=== PATIENT | male | born 1940 | race Caucasian/White ===

== ENCOUNTER 2017-05-25 20:31 | Emergency (ER) | payer MEDICARE, BC ==
[~2017-05-25] VITALS: Ht 177.8 cm; Wt 113.4 kg
[~2017-05-25 20:31] MED LIST: ASPIRIN EC81 MG PO; BENAZEPRIL HCL20 MG PO; FARXIGA5 MG PO; FLOMAX0.4 MG PO; IRON SUPPLEMEN325 MG PO; JANUVIA100 MG PO; LIPITOR40 MG PO; METFORMIN HCL500 MG PO; NORCO 5-325 TA1 EACH PO; OMEPRAZOLE20 MG PO; TRIAMTERENE-HC1 EAC1 PO; VITAMIN B12-FO1 EACH PO; VITAMIN D5000 UNIT PO; ZOFRAN4 MG PO
--- OUTSIDE RECORDS SUMMARY | 2017-05-25 20:44 | XMS | Clinical Summary ---
Demographics + + + | Address | [address] | | | [place] [address] | + + + | Home Phone | | + + + | Preferred Language | Unknown | + + + | Marital Status | | + + + | Islam Affiliation | Unknown | + + + | Race | Unknown | + + + | Ethnic Group | Other Race | + + + Author + + + | Author | [facility] | + + + | Organization | [facility] | + + + | Address | Unknown | + + + | Phone | Unavailable | + + + Care Team Providers + +------+ + | Care Boarding Mother Name | Role | Phone | + +------+ + PP | Unavailable | + +------+ + Source Comments VIVIANA is fully live on both [facility] Ambulatory and [facility] InPatient.[facility] Allergies Not on File Current Medications Not on file Active Problems Not on file Social History + +-------+ +--------+------+ | Tobacco Use | Types | Packs/Day | Years | Date | | | | | Used | | + +-------+ +--------+------+ | Never Assessed | | | | | + +-------+ +--------+------+ + + + | Sex Assigned at | Date Recorded | | | | + + + | Not on file | | + + + Plan of Treatment + + + + + | Health Maintenance | Due Date | Last Done | Comments | + + + + + | INFLUENZA VACCINE | | | | | (FLU SHOT) | 7 | | | + + + + + Results Not on filefrom Last 3 Months"
--- OUTSIDE RECORDS SUMMARY | 2017-05-25 20:44 | XMS | Clinical Summary ---
Demographics + + + | Address | [address] | | | [place] [address] | + + + | Home Phone | | + + + | Preferred Language | Unknown | + + + | Marital Status | | + + + | Gnosticist Affiliation | Unknown | + + + | Race | Unknown | + + + | Ethnic Group | Other Race | + + + Author + + + | Author | [facility] | + + + | Organization | [facility] | + + + | Address | Unknown | + + + | Phone | Unavailable | + + + Care Team Providers + +------+ + | Care Telephone Worker Name | Role | Phone | + +------+ + PP | Unavailable | + +------+ + Source Comments VIVIANA is fully live on both [facility] and [facility] Allergies Not on File Current Medications Not [...]
[2017-05-25] MEDS ORDERED: AMLODIPINE BESYL5 MG PO (20:45)
--- NOTE | 2017-05-26 13:38 | EKG ---
[facility] [address] [facility] [place] [address] Signed Normal sinus rhythm Minimal voltage criteria for LVH, may be normal variant Borderline ECG No previous ECGs available Confirmed by CY APONTE MD ([id number]) on 05/26/2017 1:38:04 PM Electronically Signed By: CY APONTE MD 05/26/17 1338 PATIENT NAME: NASREEN MERCADO REGGIE Electrocardiogram DATE OF : 40 PHYSICIAN: CY APONTE MD REPORT #: [id number] REPORT IS CONFIDENTIAL AND NOT TO BE RELEASED WITHOUT AUTHORIZATION
[2017-08-28] MEDS ORDERED: RAPAFLO8 MG PO (17:20)
[2017-08-28] MEDS ORDERED: NEURONTIN300 MG PO (17:21)
[2017-08-28] MEDS ORDERED: ALPHA LIPOIC A200 MG PO (17:22)
[2017-08-28] MEDS ORDERED: FINASTERIDE5 MG PO (17:22)
[2017-08-28] MEDS ORDERED: GLIPIZIDE10 MG PO (17:23)
[2017-08-28] MEDS ORDERED: BENAZEPRIL HCL40 MG PO (17:23)
== END 2017-05-26 00:15 | disposition home or self-care (01) ==
LOC: ED 20:31
DX: I10 Essential (primary) hypertension (principal); R06.00 Dyspnea, unspecified; E11.40 Type 2 diabetes mellitus with diabetic neuropathy, unspecified; E78.00 Pure hypercholesterolemia, unspecified; Z87.891 Personal history of nicotine dependence; Z79.84 Long term (current) use of oral hypoglycemic drugs; Z79.899 Other long term (current) drug therapy
CPT/HCPCS: 70450; 71046; 80053; 83880; 84484; 85025; 93005; 93010; 99284

== ENCOUNTER 2017-09-03 05:45 | Day surgery (SDC) | payer MEDICARE, BC ==
[~2017-09-03] VITALS: Ht 177.8 cm; Wt 111.1 kg
[~2017-09-03 05:45] MED LIST changes: +ALPHA LIPOIC A200 MG PO; +AMLODIPINE BESYL5 MG PO; +BENAZEPRIL HCL40 MG PO; +FINASTERIDE5 MG PO; +GLIPIZIDE10 MG PO; +NEURONTIN300 MG PO; +RAPAFLO8 MG PO
[2017-09-03] MEDS ORDERED: NORCO 5-325 TA1 EACH PO (10:05)
--- NOTE | 2017-09-03 14:21 | OR ---
[facility] [address] [place], [place] [address] Signed DATE OF OPERATION: 09/03/2017 SURGEON: Any Posada MD PREOPERATIVE DIAGNOSIS: Reducible umbilical hernia (1 cm). POSTOPERATIVE DIAGNOSIS: Reducible umbilical hernia (1 cm). PROCEDURE: Primary umbilical herniorrhaphy with intraabdominal Ventralex mesh. ESTIMATED BLOOD LOSS: None. INDICATIONS: Ralph is a 76-year-old obese, diabetic gentleman, who has had an umbilical hernia for a few years. He said generally it is okay, but he and his continue to work at a local [employer], which requires lifting. He notices it when he has to bend over when he is lifting. He finally decided it was bothering him enough that he brought up to his primary care provider. He was then asked to see me with respect to the above. I met with Ralph in the office and I gave him a booklet on hernias and we looked at that together in detail. He understands the nature of an umbilical hernia along with the difference between a primary suture repair and a mesh repair. He also understands the expected intraop and postop course. We did review the risks including, but not limited to bleeding, infection, scarring, change in contour of the skin, damage to bowel infection of mesh requiring removal, recurrent hernias, and chronic pain. He had expressed understanding and wished to proceed. PROCEDURE NOTE: I met with Ralph and his in our preop area. We all agreed on his umbilical hernia, we marked that appropriately. After this, he was taken in the operating room and placed in the supine position under general endotracheal tube anesthesia. He was given preoperative antibiotics along with subcutaneous heparin. SCDs were utilized. He was then prepped and draped in the usual sterile fashion. We utilized our standard transverse infraumbilical incision and carried that down around the umbilicus bluntly and with the cautery. We the hernia sac from the fascial defect with the help of the cautery and reduced the fat into the abdomen. The fascial defect was about a centimeter in diameter. We therefore, chose our 4.3 cm round Ventralex mesh, we placed Electronically Signed By: ANY POSADA MD 09/03/17 1421 PATIENT NAME: RALPH MERCADO OPERATIVE REPORT DATE OF : 40 REPORT #: [id number] PHYSICIAN: ANY POSADA MD PCP: CY APONTE MD REPORT IS CONFIDENTIAL AND NOT TO BE RELEASED WITHOUT AUTHORIZATION [facility] [address] [place], [place] [address] Signed that in the abdomen and brought it up flush against the posterior abdominal wall. We then closed the fascial defect transversely with a running #1 Prolene suture with several passes of the suture going through the tab on the mesh to help hold it in place. The tab was then cut flush with the fascia and discarded. Local anesthetic was injected into the entire operative wound. The wound was irrigated and suctioned out until clear. The umbilical skin was then held down to the midline fascia with an interrupted 2-0 PDS suture. The skin and dermis were then reapproximated with interrupted 3-0 subcuticular Monocryl sutures. Dry gauze and tape were then applied. He also was then awakened from his anesthesia, extubated in the OR, and taken to recovery room in stable condition. Any Posada MD ALB/MODL /[id number] cc: MD Calixto Caballero, MD Robert Schneider, MD Any Posada MD Copies: CY APONTE MD, GARY MD DUNST,ROBERT POSADA,ANY Rothman MD ~ Electronically Signed By: ANY POSADA MD 09/03/17 1421 PATIENT NAME: RALPH MERCADO OPERATIVE REPORT DATE OF : 40 REPORT #: [id number] PHYSICIAN: ANY POSADA MD PCP: CY APONTE MD REPORT IS CONFIDENTIAL AND NOT TO BE RELEASED WITHOUT AUTHORIZATION
== END 2017-09-03 12:35 | disposition home or self-care (01) ==
LOC: DS 05:45
PROVIDERS: Colon & Rectal Surgery
PROC: 0WUF0JZ Supplement Abdominal Wall with Synthetic Substitute, Open Approach (ICD-10-PCS; principal; 2017-09-03 06:45)
DX: K42.9 Umbilical hernia without obstruction or gangrene (principal); E66.9 Obesity, unspecified; E11.9 Type 2 diabetes mellitus without complications; I10 Essential (primary) hypertension; K21.9 Gastro-esophageal reflux disease without esophagitis; E78.00 Pure hypercholesterolemia, unspecified; E55.9 Vitamin D deficiency, unspecified; M19.90 Unspecified osteoarthritis, unspecified site; D64.9 Anemia, unspecified; Z87.891 Personal history of nicotine dependence; Z68.35 Body mass index [BMI] 35.0-35.9, adult; Z79.84 Long term (current) use of oral hypoglycemic drugs; Z79.899 Other long term (current) drug therapy
CPT/HCPCS: 00750; C1781; J0131; J0330; J0690; J0735; J1100; J1644; J1885; J2250; J2405; J2704; J3475; J7120

== ENCOUNTER 2018-08-06 06:59 | Day surgery (SDC) | payer MEDICARE, BC ==
[~2018-08-06] VITALS: Ht 177.8 cm; Wt 113.4 kg
[2018-08-06] MEDS ORDERED: IRON325 M1 PO (07:15)
[2018-08-06] MEDS ORDERED: LABETALOL HCL100 MG PO (07:16)
[2018-08-06] MEDS ORDERED: ALDACTONE25 MG PO (07:16)
[2018-08-06] MEDS ORDERED: HYDROCHLOROTH12.5 M1 PO (07:17)
--- NOTE | 2018-08-06 09:28 | NUR ---
08/06/18 0928 Ana Mckeon 0947 PATIENT ARRIVES TO PACU SLEEPING, AWAKENS WITH VERBAL STIMULI, THEN BACK TO SLEEP. PATIENT PASSING GAS. RESP EVEN AND UNLABORED, ROOM AIR SAS >95%.
--- NOTE | 2018-08-07 06:17 | OR ---
[facility] [address] [place], [place] [address] Signed DATE OF OPERATION: 08/06/2018 SURGEON: Any Posada MD PREOPERATIVE DIAGNOSES: 1. History of hiatal hernia, status post fundoplication in 2013. 2. History of Diaz esophagus. 3. Anemia. 4. Personal history of colonic polyps in 1997 and 2011. 5. History of diverticulosis. 6. History of hemorrhoids and diarrhea. 7. Brother with a history of colonic polyps. 8. Father with a history of colon cancer in his 80s. POSTOPERATIVE DIAGNOSES: 1. Diaz esophagus. 2. Ursf-kr-xofmarug gastroduodenitis. 3. An 8 mm sessile polyp at 50 cm. 4. Minimal internal hemorrhoids. PROCEDURES PERFORMED: 1. EGD with CLOtest and biopsies of the duodenum, pyloric bulb, antrum, GE junction, and distal esophagus. 2. Colonoscopy with hot biopsy. ESTIMATED BLOOD LOSS: None. INDICATION: Ralph is a 77-year-old diabetic gentleman who was asked to see me for both upper and lower endoscopy. He has a long list of issues as stated above. Overall, he says he has been feeling good. He said he has not had acid reflux since his fundoplication. He has never had any dysplasia in the Diaz esophagus. He comes every 3 to 5 years for repeat upper endoscopy for the Diaz esophagus and needs a colonoscopy every 5 years given his personal family history. He stays very active. 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 Consequently, stays in good shape, has good muscle mass, good functional status. He is a little anemic on his recent blood work. I gave Ralph and pamphlets on both upper and lower endoscopy. We had reviewed the nature of the 2 tests along with the risks including, but not limited to gas bloating, crampy abdominal pain, bleeding, perforation, requiring surgery, and missed diagnosis. We also Electronically Signed By: ANY POSADA MD 08/07/18 0617 PATIENT NAME: RALPH MERCADO OPERATIVE REPORT DATE OF : 40 REPORT #: [id number] PHYSICIAN: ANY POSADA MD PCP: CY APONTE MD REPORT IS CONFIDENTIAL AND NOT TO BE RELEASED WITHOUT AUTHORIZATION [facility] [address] [place], [place] [address] Signed discussed the need for IV conscious sedation. He had expressed understanding wished to proceed. DESCRIPTION OF PROCEDURE: Ralph was taken into our endoscopy suite and placed in the supine semi-recumbent position. His posterior oropharynx was anesthetized with lidocaine spray. A bite-block was utilized for the case. He was given 8 mg of Versed and 150 mcg of fentanyl to cover both cases. The adult gastroscope was introduced and advanced under direct visualization of camera without difficulty. He did have some punctate gastroduodenitis. We took biopsies out in the duodenum and pyloric bulb. He possibly had some shallow ulcerations. We also took biopsies of the antrum for pathologic review as well as CLOtest. He had similar findings in the antrum. However, the incisura, body, and fundus of the stomach were unremarkable. Upon retroflexion of scope, we can see these had a prior fundoplication. It appears to remain intact. The scope was withdrawn through the GE junction, which was compliant without stricture. He has no gastric or esophageal varices. There is no stricture at the GE junction. Indeed, he has mild Diaz esophagus. He seems to have some that extends slightly up into the distal esophagus as well. Consequently, we took biopsies at the Z-line, but also just above the Z-line in the distal esophagus. The middle and upper esophagus were visually unremarkable. After this, the gas was suctioned out and the gastroscope removed. Ralph tolerated the upper endoscopy quite well. Ralph was then rotated into the left lateral decubitus position. He was maintained on IV sedation with the Versed and fentanyl. A digital rectal exam was performed and he had good sphincter tone. Not much in the way of his prostate. It seems quite small and I really could not feel much there. After this, the adult colonoscope was introduced and advanced all around into the cecum under direct visualization of camera without difficulty. His prep was quite good. We would easily see the appendiceal orifice, the benton's foot, and ileocecal valve. Pictures were taken throughout for photodocumentation. We encountered 8 mm sessile polyp at 50 cm. It was easily removed with several bites of hot biopsy forceps. We did not see any diverticulosis on this occasion. Rectum was unremarkable. Upon retroflexion of scope, he does have some standard mild internal hemorrhoid columns. After this, the gas was suctioned out. The colonoscope removed. Ralph tolerated the upper and lower endoscopy quite well. RECOMMENDATIONS: I will see Ralph back in my office in 7 to 14 days to review his results. Any Posada MD Electronically Signed By: ANY POSADA MD 08/07/18 0617 PATIENT NAME: RALPH MERCADO OPERATIVE REPORT DATE OF : 40 REPORT #: [id number] PHYSICIAN: ANY POSADA MD PCP: CY APONTE MD REPORT IS CONFIDENTIAL AND NOT TO BE RELEASED WITHOUT AUTHORIZATION [address] [place] [address] Signed ALB/MODL /[id number] cc: MD Any Johnson MD Gary Crabtree, MD Lohith Veerappa Reddy, MD Copies: ROBERT FUENTES MD, ANDREW L MD CRABTREE, GARY MD REDDY, LOHITH VEERAPPA MD ~ Electronically Signed By: ANY POSADA MD 08/07/18 0617 PATIENT NAME: RALPH MERCADO OPERATIVE REPORT DATE OF : 40 REPORT #: [id number] PHYSICIAN: ANY POSADA MD PCP: CY APONTE MD REPORT IS CONFIDENTIAL AND NOT TO BE RELEASED WITHOUT AUTHORIZATION
== END 2018-08-06 10:25 | disposition home or self-care (01) ==
LOC: DS 06:59 → OPS 06:59 → DS 08:15 → OPS 10:25
PROVIDERS: Colon & Rectal Surgery
PROC: 0DB78ZX Excision of Stomach, Pylorus, Via Natural or Artificial Opening Endoscopic, Diagnostic (ICD-10-PCS; 2018-08-06)
PROC: 0DB38ZX Excision of Lower Esophagus, Via Natural or Artificial Opening Endoscopic, Diagnostic (ICD-10-PCS; 2018-08-06)
PROC: 0DB48ZX Excision of Esophagogastric Junction, Via Natural or Artificial Opening Endoscopic, Diagnostic (ICD-10-PCS; 2018-08-06)
PROC: 0DBE8ZX Excision of Large Intestine, Via Natural or Artificial Opening Endoscopic, Diagnostic (ICD-10-PCS; principal; 2018-08-06 08:15)
PROC: 0DB98ZX Excision of Duodenum, Via Natural or Artificial Opening Endoscopic, Diagnostic (ICD-10-PCS; 2018-08-06 08:15)
DX: Z12.11 Encounter for screening for malignant neoplasm of colon (principal); D12.6 Benign neoplasm of colon, unspecified; K64.8 Other hemorrhoids; K22.70 Barrett's esophagus without dysplasia; K29.50 Unspecified chronic gastritis without bleeding; I10 Essential (primary) hypertension; E66.9 Obesity, unspecified; E11.9 Type 2 diabetes mellitus without complications; M19.90 Unspecified osteoarthritis, unspecified site; E55.9 Vitamin D deficiency, unspecified; K21.9 Gastro-esophageal reflux disease without esophagitis; Z83.71 Family history of colonic polyps; Z80.0 Family history of malignant neoplasm of digestive organs; Z86.010 Personal history of colon polyps; Z87.891 Personal history of nicotine dependence; Z98.890 Other specified postprocedural states; Z79.84 Long term (current) use of oral hypoglycemic drugs; Z79.899 Other long term (current) drug therapy; Z68.35 Body mass index [BMI] 35.0-35.9, adult
CPT/HCPCS: 86677; 99153; G0500; J2250; J3010; J7120

== ENCOUNTER 2021-07-10 13:03 | Emergency (ER) | payer MEDICARE, BC ==
[~2021-07-10] VITALS: Ht 177.8 cm; Wt 116.4 kg
[~2021-07-10 13:03] MED LIST changes: +ALDACTONE25 MG PO; +HYDROCHLOROTH12.5 M1 PO; +IRON325 M1 PO; +LABETALOL HCL100 MG PO
[2021-07-10] MEDS ORDERED: DOXAZOSIN MESYLA1 MG PO (14:35)
[2021-07-10] MEDS ORDERED: OMEPRAZOLE40 MG PO (14:36)
== END 2021-07-10 21:25 | disposition home or self-care (01) ==
LOC: ED 13:03
DX: R42 Dizziness and giddiness (principal); E78.00 Pure hypercholesterolemia, unspecified; E11.40 Type 2 diabetes mellitus with diabetic neuropathy, unspecified; Z87.891 Personal history of nicotine dependence; Z88.8 Allergy status to other drugs, medicaments and biological substances; Z79.899 Other long term (current) drug therapy; Z79.84 Long term (current) use of oral hypoglycemic drugs
CPT/HCPCS: 36415; 70450; 70551; 80053; 85025; 96374; 99284-25; J2060

== ENCOUNTER 2021-07-26 06:25 | Day surgery (SDC) | payer MEDICARE, BC ==
[~2021-07-26] VITALS: Ht 177.8 cm; Wt 116.3 kg
[~2021-07-26 06:25] MED LIST changes: +ACETYL L-CARNI1 EACH PO; +CARDURA1 MG PO; +DOXAZOSIN MESYLA1 MG PO; +OMEPRAZOLE40 MG PO
--- NOTE | 2021-07-26 07:15 | NUR ---
BLOOD GLUCOSE 110.
--- NOTE | 2021-07-26 07:50 | NUR ---
07/26/21 2226 Heather Wagner 7007-PATIENT ARRIVED TO PACU ON 3L NC PLACED ON 2. RR EVEN. PATIENTS HOB ELEVATED REACTIVE TO VERBAL STIMULI VERY DROWSY DENIES PAIN OR NAUSEA. IVF INFUSING. ABDOMEN SOFT. PATIENT DOZES BACK TO SLEEP.
--- NOTE | 2021-07-26 08:37 | NUR ---
PT ALERT, ORIENTED AND SUPPORTED BY HIS . PT SEEMS INFORMED, HIS WILL REMAIN FOR DC. MANAGER MONITORING REYNA IN TO TAKE PT, GAVE BLESSING AND WILL FOLLOW
--- NOTE | 2021-07-26 16:53 | OR ---
[facility] [address] [place], [place] [address] Signed DATE OF OPERATION: 07/26/2021 SURGEON: Any Posada MD PREOPERATIVE DIAGNOSES: 1. 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 2. History of hiatal hernia, status post laparoscopic Brunilda fundoplication 2013. 3. Acid reflux. POSTOPERATIVE DIAGNOSES: 1. Mild diffuse gastritis. 2. Intact Brunilda fundoplication. 3. Short-segment Diaz's esophagus. PROCEDURE: EGD with CLOtest and biopsies of the antrum and the distal esophagus. ESTIMATED BLOOD LOSS: None. INDICATIONS: Ralph is an 80-year-old gentleman who returns for a followup endoscopy given his short-segment Diaz's esophagus. He had his upper endoscopy in 2013 for the hiatal hernia and was found to have his short-segment Diaz's esophagus without dysplasia. CLOtest was negative. He always does well with Versed and fentanyl. He underwent a laparoscopic Brunilda fundoplication later that year. I repeated his upper endoscopy in 2014 and again he has a Diaz's esophagus without dysplasia. He came back in 2019 for his upper endoscopy and again short-segment Diaz's esophagus without dysplasia. He always has some mild inflammation in the stomach. His CLOtest is always negative. He always does well with Versed and fentanyl. He told me at age 80 this might be his last endoscopy. He and his finally retired last year. He said he had developed recurrent acid reflux symptoms, so he went back on omeprazole. He said he feels much better. He has no esophageal dysphagia. In the office, I gave him a pamphlet on upper endoscopy. He recalls the test quite readily. There is risk including, but not limited to gas bloating, crampy abdominal pain, bleeding, perforation requiring surgery, and missed diagnosis. We also reviewed the need for IV conscious sedation. As always, his will take him home. He had expressed understanding and wished to proceed. PROCEDURE NOTE: Ralph was taken into our endoscopy suite and placed in the supine semi-recumbent Electronically Signed By: ANY POSADA MD 07/26/21 1653 PATIENT NAME: RALPH MERCADO OPERATIVE REPORT DATE OF : 40 REPORT #: [id number] PHYSICIAN: AYN POSADA MD PCP: CY APONTE MD REPORT IS CONFIDENTIAL AND NOT TO BE RELEASED WITHOUT AUTHORIZATION [facility] [address] [place], [place] [address] Signed position. The posterior oropharynx was anesthetized with lidocaine spray. A bite block was utilized for the case. He was given 5 mg of Versed and 100 mcg of fentanyl to cover the case. The adult gastroscope was introduced and advanced quite readily all the way out into the third portion of the duodenum without difficulty. The duodenum and pyloric channel were unremarkable. As always, he had some mild inflammatory changes throughout his stomach. We went ahead and took a biopsy of the antrum for pathologic review as well as CLOtest. Upon retroflexion of the scope, we can see the intact Brunilda fundoplication. The scope was then withdrawn up through the area of the GE junction, which was compliant without stricture. Again, he has short-segment Diaz's esophagus. We took several biopsies around this area for pathologic review. No evidence of any inflammatory changes in his distal, middle and upper esophagus. After this, the gas was suctioned out and the gastroscope removed. Ralph tolerated the procedure quite well. RECOMMENDATIONS: I will see Ralph back in my office in 7 to 14 days to review his results. Any Posada MD ALB/MODL /[id number] cc: MD Any Caballero MD Christy Dunst, MD Copies: CY APONTE MD, ANDREW L MD DUNST, CHRISTY MD ~ Electronically Signed By: ANY POSADA MD 07/26/21 1653 PATIENT NAME: RALPH MERCADO OPERATIVE REPORT DATE OF : 40 REPORT #: [id number] PHYSICIAN: ANY POSADA MD PCP: CY APONTE MD REPORT IS CONFIDENTIAL AND NOT TO BE RELEASED WITHOUT AUTHORIZATION
--- NOTE | 2021-07-31 14:36 | PATH ---
[facility] [address] [facility] [place] [address] Signed THIS IS AN ADDENDUM REPORT SPECIMEN(S): A ANTRUM/PYLORUS BIOPSY SPECIMEN(S): B GE JUNCTION BIOPSY SPECIMEN(S): C MID ESOPHAGEAL BIOPSY SPECIMEN SOURCE: A. ANTRUM/PYLORUS BIOPSY B. GE JUNCTION BIOPSY C. MID ESOPHAGEAL BIOPSY CLINICAL HISTORY: History of Diaz's. EGD. FINAL PATHOLOGIC DIAGNOSIS: A. Stomach, antrum/pylorus, biopsy: - Antral mucosa with chronic, active gastritis and reactive gastropathy. - Negative for Helicobacter organisms on HE stain. - Negative for dysplasia or malignancy. B. Gastroesophageal junction, biopsy: - Squamocolumnar junctional mucosa with intestinal metaplasia arising in a background of reactive changes. - Negative for dysplasia or malignancy. C. Esophagus, mid, biopsy: - Squamocolumnar junctional mucosa with intestinal metaplasia and reactive changes, consistent with Diaz's esophagus. - Negative for dysplasia or malignancy. COMMENT: Regarding specimen A: An H. pylori immunohistochemical stain has been ordered and will be reported in an addendum. NAL:cml:C2NR MICROSCOPIC EXAMINATION: Histologic sections of all submitted blocks are examined by light microscopy. These findings, together with the gross examination, support the pathologic diagnosis. GROSS DESCRIPTION: Three specimens are received in three containers labeled with "Ralph". A. The specimen, labeled "Ralph, BX antrum," is received in formalin and PATIENT NAME: RALPH MERCADO PATHOLOGY DATE OF : 40 REPORT #: [id number] PHYSICIAN: DIVYA ALVAREZ PCP: CY APONTE MD REPORT IS CONFIDENTIAL AND NOT TO BE RELEASED WITHOUT AUTHORIZATION [facility] [address] [place], [place] [address] Signed consists of one fragment of pink-ibarra tissue (0.4 cm in greatest dimension). The specimen is submitted entirely in cassette (A1). B. The specimen, labeled "Ralph, ZULEMA GE junction," is received in formalin and consists of two fragments of pink-ibarra tissue (0.2 cm in greatest dimension). The specimen is submitted entirely in cassette (B1). C. The specimen, labeled "Ralph, ZULEMA mid esophagus," is received in formalin and consists of two fragments of pink-ibarra tissue (0.3 cm in greatest dimension). The specimen is submitted entirely in cassette (C1). KD (under the direct supervision of a pathologist) The Gross Description was prepared using a voice recognition system. The report was reviewed for accuracy; however, sound-alike word errors, addition and/or deletions may occur. If there is any question about this report, please contact Client Services. PERFORMING LABORATORY: The technical component was performed by [facility], [address] [place] [address] (Medical Biller/Coder: Mel Reyes MD; CLIA# [id number]). [facility], [address] [place] [id number] (CLIA# [id number]). ADDITIONAL NOTES: Immunohistochemical and/or in situ hybridization studies were performed on this case with the appropriate positive controls that react as expected. This test was developed and its performance characteristics determined by [facility]. It has not been cleared or approved by the U.S. Food and Drug Administration. The FDA has determined that such clearance or approval is not necessary. This test is used for clinical purposes. It should not be regarded as investigational or for research. [facility] is certified under the Clinical Laboratory Improvement Amendments of 1988 (CLIA) as qualified to perform high complexity clinical laboratory testing. This assay has not been validated for specimens that have been decalcified. The technical component was performed by [facility], [address] [place] [address] (CLIA# [id number]). Professional interpretation was performed by [facility] PATIENT NAME: RALPH MERCADO PATHOLOGY DATE OF : 40 REPORT #: [id number] PHYSICIAN: DIVYA ALVAREZ PCP: CY PAONTE MD REPORT IS CONFIDENTIAL AND NOT TO BE RELEASED WITHOUT AUTHORIZATION [facility] [address] [place], [place] [address] Signed branch, [address] [address] (CLIA# [id number]). REASON FOR ADDENDUM: To add results of additional testing. ADDENDUM PATHOLOGIC DIAGNOSIS: Regarding specimen A: - An H. pylori immunohistochemical stain (with appropriately staining controls) is negative for Helicobacter organisms. NAL:cml Diagnostician: Bina Cotton MD Pathologist Electronically Signed 07/31/2021 Copies: ~ PATIENT NAME: ESTERMooRALPH PATHOLOGY DATE OF : 40 REPORT #: [id number] PHYSICIAN: DIVYA ALVAREZ PCP: CY APONTE MD REPORT IS CONFIDENTIAL AND NOT TO BE RELEASED WITHOUT AUTHORIZATION
== END 2021-07-26 08:40 | disposition home or self-care (01) ==
LOC: DS 06:25 → OPS 06:25 → DS 07:30 → OPS 08:40
PROVIDERS: ATTEND Colon & Rectal Surgery
PROC: 0DB78ZX Excision of Stomach, Pylorus, Via Natural or Artificial Opening Endoscopic, Diagnostic (ICD-10-PCS; 2021-07-26)
PROC: 0DB38ZX Excision of Lower Esophagus, Via Natural or Artificial Opening Endoscopic, Diagnostic (ICD-10-PCS; principal; 2021-07-26 07:30)
DX: K29.50 Unspecified chronic gastritis without bleeding (principal); K31.9 Disease of stomach and duodenum, unspecified; K22.70 Barrett's esophagus without dysplasia; K44.9 Diaphragmatic hernia without obstruction or gangrene; K21.9 Gastro-esophageal reflux disease without esophagitis; E11.9 Type 2 diabetes mellitus without complications; I10 Essential (primary) hypertension; Z87.891 Personal history of nicotine dependence; Z20.822 Contact with and (suspected) exposure to COVID-19
CPT/HCPCS: 87077; 88305; 88342; G0500; J2250; J3010; J7121

== ENCOUNTER 2023-09-08 14:51 | Emergency (ER) | payer MEDICARE, OTHER ==
[~2023-09-08] VITALS: Ht 177.8 cm; Wt 121.2 kg
--- OUTSIDE RECORDS SUMMARY | 2023-09-08 14:53 | XMS ---
PreManage Notification: NASREEN MERCADO Security Fur Finisher Events No recent Security Events currently on file [facility] There are no care providers on record at this time. Abhijeet has no Care Guidelines for this patient. Dariel VISIT COUNT (12 MO.) 2 [facility] TOTAL 2 NOTE: Visits indicate total known visits. ED/UCC VISIT TRACKING (12 MO.) 09/08/2023 14:52 [facility] [place] TYPE: Emergency COMPLAINT: - FOOT SWELLING 03/22/2023 12:[address] [facility] [place] TYPE: Emergency COMPLAINT: - HIP PAIN DIAGNOSES: - Allergy status to analgesic agent - Allergy status to other drugs, medicaments and biological substances - Essential (primary) hypertension - care home (current) use of oral hypoglycemic drugs - Low back pain, unspecified - Lumbago with sciatica, right side - Other vermin exterminator (current) drug therapy - Type 2 diabetes mellitus with diabetic neuropathy, unspecified INPATIENT VISIT TRACKING (12 MO.) No inpatient visits to display in this time frame [email or web address]
[2023-09-08] MEDS ORDERED: GABAPENTIN300 MG PO (19:43)
[2023-09-08] MEDS ORDERED: DAPAGLIFLOZIN5 MG (19:50)
[2023-09-08 21:23] LABS: BILIRUBIN, URINE NEGATIVE (negative); BLOOD/HGB, URINE NEGATIVE (Negative); KETONE, URINE NEGATIVE (Negative); LEUK ESTERASE, URINE NEGATIVE (negative); NITRITE, URINE NEGATIVE (negative); PH, URINE 5.5 (5-7)
[2023-09-08 21:49] LABS: EOSINOPHILS 4.6 % (0-6); HEMATOCRIT 34.9 % (35.0-50.0); HEMOGLOBIN 11.7 g/dL (12.0-18.0); LYMPHOCYTES 20.9 % (24-44); MCH 29.4 (27-36); MCHC 33.7 g/dl (30-36); MCV 87.4 fl (81-99); MONOCYTES 8.1 % (0-12); NEUTROPHILS 65.4 % (39-80); PLATELET COUNT 206 K/uL (140-440); RBC 3.99 M/ul (4.3-5.7); RDW 12.7 (10.5-15.0)
[2023-09-08 22:12] LABS: ALBUMIN 3.6 g/dL (3.4-5.0); ALBUMIN/GLOBULIN RATIO 1.13 (1.1-2.4); ANION GAP 13.3 (7-21); BILIRUBIN, TOTAL 0.4 ng/dL (0.2-1.0); BUN/CREATININE RATIO 13.97 (6.0-28.6); CALCIUM 9.3 mg/dL (8.5-10.1); CREATININE, SERUM 1.86 mg/dL (0.70-1.30); MAGNESIUM 1.7 mg/dL (1.8-2.4); POTASSIUM 4.3 mmol/L (3.5-5.1); PROTEIN, TOTAL 6.8 g/dL (6.4-8.2); TSH, 3RD GENERATION 4.814 uIU/mL (0.358-3.740)
[2023-09-08] MEDS ORDERED: POTASSIUM CHLORIDE 10 MEQ TABCR PO ONE (22:45)
[2023-09-08] MEDS ORDERED: FUROSEMIDE 40 MG TAB PO ONE (22:45)
[2023-09-08] MEDS ORDERED: POTASSIUM CHLO20 ME2 PO (22:51)
[2023-09-08] MEDS ORDERED: LASIX40 MG PO (22:51)
[2023-09-08 23:22] VITALS: BP 146/72
--- NOTE | 2023-09-09 08:21 | EKG ---
[facility] [address] [place] [address] Signed Sinus bradycardia with sinus arrhythmia Left axis deviation Pulmonary disease pattern Nonspecific intraventricular conduction delay Minimal voltage criteria for LVH, may be normal variant ( Karthikeyan product ) Abnormal ECG When compared with ECG of 28-AUG-2017 16:19, Vent. rate has decreased BY 35 BPM QRS duration has increased Confirmed by Ravi Reese MD () on 09/09/2023 8:22:02 AM Electronically Signed By: RAVI REESE MD 09/09/23 0821 PATIENT NAME: NASREEN MERCADO Electrocardiogram DATE OF : 40 PHYSICIAN: RAVI REESE MD REPORT #: [id number] REPORT IS CONFIDENTIAL AND NOT TO BE RELEASED WITHOUT AUTHORIZATION
== END 2023-09-08 23:20 | disposition home or self-care (01) ==
LOC: ED 14:51
PROVIDERS: Internal Medicine
DX: R60.0 Localized edema (principal); I10 Essential (primary) hypertension; E11.40 Type 2 diabetes mellitus with diabetic neuropathy, unspecified; E78.00 Pure hypercholesterolemia, unspecified; Z87.891 Personal history of nicotine dependence; Z88.6 Allergy status to analgesic agent; Z88.8 Allergy status to other drugs, medicaments and biological substances; Z79.899 Other long term (current) drug therapy; Z79.84 Long term (current) use of oral hypoglycemic drugs
CPT/HCPCS: 36415; 71045; 80053; 81003; 83735; 83880; 84439; 84443; 85025; A9270

== ENCOUNTER 2024-08-17 11:31 | Emergency (ER) | payer MEDICARE, OTHER ==
[~2024-08-17] VITALS: Ht 177.8 cm; Wt 114.5 kg
[~2024-08-17 11:31] MED LIST changes: +DAPAGLIFLOZIN5 MG; +GABAPENTIN300 MG PO; +LASIX40 MG PO; +POTASSIUM CHLO20 ME2 PO
[2024-08-17 11:57] LABS: BILIRUBIN, URINE NEGATIVE (negative); BLOOD/HGB, URINE TRACE-L (Negative); KETONE, URINE NEGATIVE (Negative); LEUK ESTERASE, URINE NEGATIVE (negative); NITRITE, URINE NEGATIVE (negative); PH, URINE 5.5 (5-7)
[2024-08-17] MEDS ORDERED: SODIUM CHLORIDE 0.9% 500 ML IV PRN (12:00)
[2024-08-17 12:01] LABS: BASOPHILS 0.6 % (0-2); EOSINOPHILS 1.7 % (0-6); HEMATOCRIT 35.4 % (35.0-50.0); HEMOGLOBIN 11.9 g/dL (12.0-18.0); LYMPHOCYTES 14.9 % (24-44); MCH 28.6 (27-36); MCHC 33.5 g/dl (30-36); MCV 85.5 fl (81-99); MONOCYTES 6.1 % (0-12); NEUTROPHILS 76.7 % (39-80); PLATELET COUNT 224 K/uL (140-440); RBC 4.14 M/ul (4.3-5.7); RDW 13.6 (10.5-15.0)
[2024-08-17 12:04] LABS: EPITHELIAL CELLS, URINE SQUAMOUS 1+ /lpf (0-1+); REFLEX CULTURE, URINE No (No); WHITE BLOOD CELLS, URINE 0-1 /HPF (0-5)
[2024-08-17 12:19] LABS: ALBUMIN 3.6 g/dL (3.4-5.0); ALBUMIN/GLOBULIN RATIO 1.16 (1.1-2.4); ANION GAP 15.1 (7-21); BILIRUBIN, TOTAL 0.4 mg/dL (0.2-1.0); BUN/CREATININE RATIO 9.37 (6.0-28.6); CALCIUM 9.4 mg/dL (8.5-10.1); CREATININE, SERUM 2.24 mg/dL (0.70-1.30); POTASSIUM 4.1 mmol/L (3.5-5.1); PROTEIN, TOTAL 6.7 g/dL (6.4-8.2)
--- NOTE | 2024-08-17 13:16 | EKG ---
[facility] [address] [place] [place] [address] Signed Sinus rhythm with 1st degree AV block Left axis deviation Left ventricular hypertrophy with QRS widening ( R in aVL , Karthikeyan product ) Abnormal ECG When compared with ECG of 08-SEP-2023 21:08, No significant change was found Confirmed by Yossi Regan MD ([id number]) on 08/17/2024 1:16:36 PM Electronically Signed By: YOSSI REGAN MD 08/17/24 1316 PATIENT NAME: NASREEN MERCADO MARCYGARTH Electrocardiogram DATE OF : 40 PHYSICIAN: YOSSI REGAN MD REPORT #: [id number] REPORT IS CONFIDENTIAL AND NOT TO BE RELEASED WITHOUT AUTHORIZATION
[2024-08-17 14:05] VITALS: BP 131/73
== END 2024-08-17 14:05 | disposition home or self-care (01) ==
LOC: ED 11:31
PROVIDERS: Emergency Medicine
DX: R55 Syncope and collapse (principal); N17.9 Acute kidney failure, unspecified; N18.31 Chronic kidney disease, stage 3a; E11.40 Type 2 diabetes mellitus with diabetic neuropathy, unspecified; E78.00 Pure hypercholesterolemia, unspecified; I10 Essential (primary) hypertension; Z79.84 Long term (current) use of oral hypoglycemic drugs; Z79.899 Other long term (current) drug therapy; Z88.1 Allergy status to other antibiotic agents; Z88.8 Allergy status to other drugs, medicaments and biological substances; Z87.891 Personal history of nicotine dependence
CPT/HCPCS: 36415; 71045; 80053; 81001; 84484; 85025; 85379; 93005; 93010; 99284-25; J7040

== ENCOUNTER 2024-11-23 13:26 | Emergency (ER) | payer MEDICARE, OTHER ==
[~2024-11-23] VITALS: Ht 177.8 cm; Wt 109.0 kg
[2024-11-23] MEDS ORDERED: OZEMPIC2 MG/0.75 SQ (13:51)
[2024-11-23 13:57] LABS: BASOPHILS 0.6 % (0.2-1.2); EOSINOPHILS 1.1 % (0.8-7.0); LYMPHOCYTES 12.4 % (21.8-53.1); MCH 27.9 PG (25.7-32.2); MCHC 31.5 g/dL (32.3-36.5); MCV 88.5 fL (79.0-92.2); MONOCYTES 5.7 % (5.3-12.2); NEUTROPHILS 79.8 % (34.0-67.9); RBC 4.34 M/uL (4.63-6.08)
[2024-11-23 14:16] LABS: ALT (SGPT) 23.0 U/L (14-59); AST (SGOT) 18.0 U/L (15-37); GLOMERULAR FILTRATION RATE,EST 38.0 mL/min (>60); PROTEIN, TOTAL 6.4 g/dL (6.4-8.2); UREA NITROGEN 17.0 mg/dL (7-18)
[2024-11-23] MEDS ORDERED: MAGNESIUM OXIDE 400 MG TABLET PO ONE (15:00)
[2024-11-23] MEDS ORDERED: MAGNESIUM SULFATE 2 GM/50 ML BAG IV ONE (15:00)
[2024-11-23 16:14] VITALS: BP 104/59
--- NOTE | 2024-11-24 21:21 | EKG ---
[facility] [address] [facility] [place] [address] Signed Sinus rhythm with premature atrial complexes Left anterior fascicular block Minimal voltage criteria for LVH, may be normal variant ( [place] product ) Prolonged QT Abnormal ECG Confirmed by Salvador Ng DO ([id number]) on 11/24/2024 9:21:25 PM Electronically Signed By: SALVADOR NG DO 11/24/242120 PATIENT NAME: JESSNASREEN Electrocardiogram DATE OF : 40 PHYSICIAN: SALVADOR NG DO REPORT #: [id number] REPORT IS CONFIDENTIAL AND NOT TO BE RELEASED WITHOUT AUTHORIZATION
== END 2024-11-23 16:15 | disposition home or self-care (01) ==
LOC: ED 13:26
PROVIDERS: Emergency Medicine
DX: I95.9 Hypotension, unspecified (principal); E83.42 Hypomagnesemia; E11.9 Type 2 diabetes mellitus without complications; I10 Essential (primary) hypertension; Z87.891 Personal history of nicotine dependence; Z88.8 Allergy status to other drugs, medicaments and biological substances; Z79.84 Long term (current) use of oral hypoglycemic drugs; Z79.899 Other long term (current) drug therapy
CPT/HCPCS: 36415; 80053; 83735; 84484; 85025; 93005; 93010; 96365; 99285-25; J3475